=== PATIENT | male | born 1995 | race Caucasian/White ===

== ENCOUNTER 2021-12-12 06:37 | Outpatient (CLI) | payer OTHER, SELFPAY ==
[2021-12-12 07:19] LABS: Basophils Percent Auto 0.8 % (0.2-1.2); Eosinophils Absolute Auto 0.2 K/mm3 (0-0.3); Eosinophils Percent Auto 3.7 % (0-4.4); Hematocrit 48.7 % (42.0-52.0); Immature Granulocyte Absolute 0.01 K/mm3 (0.00-0.031); Immature Granulocyte Percent A 0.2 % (0-0.5); Lymphocytes Absolute Auto 1.84 K/mm3 (0.9-3.2); Lymphocytes Percent Auto 35.7 % (18.3-44.2); Mean Corpuscular HGB Conc 34.9 g/dl (32-36); Mean Corpuscular Hemoglobin 28.6 pg (26-34); Mean Platelet Volume 9.9 fl (7.4-10.4); Monocytes Absolute Auto 0.5 K/mm3 (0.1-0.6); Monocytes Percent Auto 9.9 % (2.6-8.5); Neutrophils Absolute Auto 2.6 K/mm3 (1.3-6.7); Neutrophils Percent Auto 49.7 % (45.5-73.1); Platelet Count Result 265 k/mm3 (150-375); Red Blood Count 5.94 M/mm3 (4.6-6.20); White Blood Count 5.2 K/mm3 (4.5-10.0)
[2021-12-12 07:31] LABS: Alanine Aminotransferase 41 U/L (6-50); Albumin Level 4.6 g/dL (3.5-5.1); Alkaline Phosphatase 75 U/L (38-126); Anion Gap 6 mmol/L (8-16); Aspartate Amino Transferase 24 U/L (17-59); Bilirubin,Total 0.9 mg/dL (0.2-1.3); Blood Urea Nitrogen 17 mg/dL (9-20); Calcium 8.8 mg/dL (8.4-10.2); Carbon Dioxide 27 mmol/L (22-30); Chloride 104 mmol/L (98-107); Cholesterol 226 mg/dL (0-200); Estimated Glomerular Filt Rate > 60; Glucose 219 mg/dL (65-110); HDL Direct 43 mg/dL; Potassium 4.1 mmol/L (3.4-5.0); Sodium 137 mmol/L (137-145); Triglycerides 153 mg/dL (<150)
[2021-12-12 07:41] LABS: LDL Cholesterol Direct 133 mg/dL
[2021-12-12 08:15] LABS: Hemoglobin A1C 9.3 % (<5.7)
== END 2021-12-12 06:38 | disposition home or self-care (01) ==
PROVIDERS: PCP Internal Medicine; Visit Provider Nurse Practitioner
DX: R73.9 Hyperglycemia, unspecified (principal)
CPT/HCPCS: 36415; 80053; 80061; 83036; 85025

== ENCOUNTER 2022-03-08 08:49 | Outpatient (CLI) | payer OTHER, SELFPAY ==
[2022-03-08 21:03] LABS: Hemoglobin A1C 9.9 % (<5.7)
== END 2022-03-08 08:50 | disposition home or self-care (01) ==
LOC: ANHGOSHLAB 08:50
PROVIDERS: PCP Internal Medicine; Visit Provider Nurse Practitioner
DX: E11.9 Type 2 diabetes mellitus without complications (principal)
CPT/HCPCS: 36415; 83036

== ENCOUNTER 2022-06-12 08:01 | Outpatient (CLI) | payer OTHER, SELFPAY ==
[2022-06-12 20:34] LABS: Creatinine Urine 266.7 mg/dL
[2022-06-12 20:39] LABS: MALB Creatinine Ratio 48.2 mg/g (0-30); Microalbumin Urine Random 128.6 mg/L (0-16.7)
[2022-06-12 20:46] LABS: Hemoglobin A1C 7.6 % (<5.7)
[2022-06-12 21:00] LABS: Anion Gap 9 mmol/L (8-16); Blood Urea Nitrogen 15 mg/dL (9-20); Calcium 8.8 mg/dL (8.4-10.2); Carbon Dioxide 28 mmol/L (22-30); Chloride 102 mmol/L (98-107); Cholesterol 193 mg/dL (0-200); Estimated Glomerular Filt Rate > 60; Glucose 142 mg/dL (65-110); HDL Direct 47 mg/dL; Potassium 4.5 mmol/L (3.4-5.0); Sodium 139 mmol/L (137-145); Triglycerides 120 mg/dL (<150)
[2022-06-12 21:19] LABS: LDL Cholesterol Direct 104 mg/dL
== END 2022-06-12 08:02 | disposition home or self-care (01) ==
LOC: ANHGOSHLAB 08:03
PROVIDERS: PCP Internal Medicine; Visit Provider Nurse Practitioner
DX: E11.9 Type 2 diabetes mellitus without complications (principal)
CPT/HCPCS: 36415; 80048; 80061; 82043; 83036

== ENCOUNTER 2022-09-26 14:02 | Outpatient (CLI) | payer OTHER, SELFPAY ==
[2022-09-26 19:37] LABS: Creatinine Urine 73.4 mg/dL
[2022-09-26 19:41] LABS: MALB Creatinine Ratio 96.7 mg/g (0-30)
[2022-09-26 19:45] LABS: Hemoglobin A1C 7.9 % (<5.7)
[2022-09-26 20:26] LABS: Anion Gap 8 mmol/L (8-16); Blood Urea Nitrogen 17 mg/dL (9-20); Calcium 9.4 mg/dL (8.4-10.2); Carbon Dioxide 29 mmol/L (22-30); Chloride 100 mmol/L (98-107); Estimated Glomerular Filt Rate > 60; Glucose 189 mg/dL (65-110); Potassium 3.9 mmol/L (3.4-5.0); Sodium 137 mmol/L (137-145)
== END 2022-09-26 14:03 | disposition home or self-care (01) ==
LOC: ANHGOSHLAB 14:05
PROVIDERS: PCP Internal Medicine; Visit Provider Nurse Practitioner
DX: E11.9 Type 2 diabetes mellitus without complications (principal)
CPT/HCPCS: 36415; 80048; 82043; 83036

== ENCOUNTER 2023-01-03 08:15 | Outpatient (CLI) | payer OTHER, SELFPAY ==
[2023-01-03 13:07] LABS: Basophils Percent Auto 0.8 % (0.2-1.2); Eosinophils Absolute Auto 0.2 K/mm3 (0-0.3); Hemoglobin 17.2 g/dL (14.0-18.0); Immature Granulocyte Absolute 0.01 K/mm3 (0.00-0.031); Immature Granulocyte Percent A 0.2 % (0-0.5); Lymphocytes Absolute Auto 1.89 K/mm3 (0.9-3.2); Lymphocytes Percent Auto 37.2 % (18.3-44.2); Mean Corpuscular HGB Conc 33.1 g/dl (32-36); Mean Corpuscular Hemoglobin 28.7 pg (26-34); Mean Corpuscular Volume 86.7 fl (80-100); Monocytes Absolute Auto 0.5 K/mm3 (0.1-0.6); Monocytes Percent Auto 8.9 % (2.6-8.5); Neutrophils Absolute Auto 2.5 K/mm3 (1.3-6.7); Neutrophils Percent Auto 49.9 % (45.5-73.1); Platelet Count Result 261 k/mm3 (150-375); Red Cell Distribution Width 12.8 % (11.5-14.5); White Blood Count 5.1 K/mm3 (4.5-10.0)
[2023-01-03 13:16] LABS: Alanine Aminotransferase 59 U/L (6-50); Albumin Level 4.5 g/dL (3.5-5.1); Alkaline Phosphatase 63 U/L (38-126); Anion Gap 8 mmol/L (8-16); Aspartate Amino Transferase 41 U/L (17-59); Bilirubin,Total 0.8 mg/dL (0.2-1.3); Blood Urea Nitrogen 18 mg/dL (9-20); Carbon Dioxide 27 mmol/L (22-30); Chloride 101 mmol/L (98-107); Cholesterol 191 mg/dL (0-200); Estimated Glomerular Filt Rate > 60; Glucose 141 mg/dL (65-110); HDL Direct 49 mg/dL; Potassium 3.9 mmol/L (3.4-5.0); Sodium 136 mmol/L (137-145); Triglycerides 105 mg/dL (<150)
[2023-01-03 13:28] LABS: LDL Cholesterol Direct 118 mg/dL
== END 2023-01-03 08:16 | disposition home or self-care (01) ==
LOC: ANHGOSHLAB 08:19
PROVIDERS: PCP Internal Medicine; Visit Provider Nurse Practitioner
DX: E11.9 Type 2 diabetes mellitus without complications (principal); E78.5 Hyperlipidemia, unspecified
CPT/HCPCS: 36415; 80053; 80061; 83036; 85025

== ENCOUNTER 2023-04-03 08:38 | Outpatient (CLI) | payer OTHER, SELFPAY ==
[2023-04-03 19:33] LABS: Creatinine Urine 28.9 mg/dL
[2023-04-03 19:36] LABS: Alanine Aminotransferase 35 U/L (6-50); Albumin Level 4.6 g/dL (3.5-5.1); Alkaline Phosphatase 60 U/L (38-126); Anion Gap 8 mmol/L (8-16); Aspartate Amino Transferase 35 U/L (17-59); Blood Urea Nitrogen 14 mg/dL (9-20); Calcium 9.4 mg/dL (8.4-10.2); Carbon Dioxide 28 mmol/L (22-30); Chloride 98 mmol/L (98-107); Cholesterol 192 mg/dL (0-200); Estimated Glomerular Filt Rate > 60; Glucose 179 mg/dL (65-110); HDL Direct 46 mg/dL; Potassium 4.1 mmol/L (3.4-5.0); Sodium 134 mmol/L (137-145); Triglycerides 140 mg/dL (<150)
[2023-04-03 19:41] LABS: MALB Creatinine Ratio 47.1 mg/g (0-30); Microalbumin Urine Random 13.6 mg/L (0-16.7)
[2023-04-03 19:47] LABS: LDL Cholesterol Direct 110 mg/dL
[2023-04-03 20:37] LABS: Hemoglobin A1C 7.2 % (<5.7)
== END 2023-04-03 08:39 | disposition home or self-care (01) ==
LOC: ANHGOSHLAB 08:39
PROVIDERS: PCP Internal Medicine; Visit Provider Nurse Practitioner
DX: E11.9 Type 2 diabetes mellitus without complications (principal)
CPT/HCPCS: 36415; 80053; 80061; 82043; 83036

== ENCOUNTER 2023-07-16 07:59 | Outpatient (CLI) | payer OTHER, SELFPAY ==
[2023-07-16 11:49] LABS: Anion Gap 9 mmol/L (8-16); Blood Urea Nitrogen 16 mg/dL (9-20); Calcium 9.3 mg/dL (8.4-10.2); Carbon Dioxide 26 mmol/L (22-30); Chloride 103 mmol/L (98-107); Estimated Glomerular Filt Rate > 60; Glucose 182 mg/dL (65-110); Potassium 3.8 mmol/L (3.4-5.0); Sodium 138 mmol/L (137-145)
[2023-07-16 12:38] LABS: Hemoglobin A1C 8.6 % (<5.7)
== END 2023-07-16 08:00 | disposition home or self-care (01) ==
LOC: ANHGOSHLAB 08:00
PROVIDERS: PCP Internal Medicine; Visit Provider Clinical Nurse Specialist
DX: E11.9 Type 2 diabetes mellitus without complications (principal)
CPT/HCPCS: 36415; 80048; 83036

== ENCOUNTER 2023-09-16 07:09 | Outpatient (CLI) | payer OTHER, SELFPAY ==
[2023-09-16 07:30] LABS: Basophils Percent Auto 0.6 % (0.2-1.2); Eosinophils Absolute Auto 0.2 K/mm3 (0-0.3); Eosinophils Percent Auto 4.3 % (0-4.4); Hematocrit 51.6 % (42.0-52.0); Hemoglobin 17.4 g/dL (14.0-18.0); Immature Granulocyte Absolute 0.01 K/mm3 (0.00-0.031); Immature Granulocyte Percent A 0.2 % (0-0.5); Lymphocytes Absolute Auto 1.86 K/mm3 (0.9-3.2); Lymphocytes Percent Auto 37.8 % (18.3-44.2); Mean Corpuscular HGB Conc 33.7 g/dl (32-36); Mean Corpuscular Hemoglobin 28.6 pg (26-34); Mean Corpuscular Volume 84.9 fl (80-100); Mean Platelet Volume 9.8 fl (7.4-10.4); Monocytes Absolute Auto 0.5 K/mm3 (0.1-0.6); Monocytes Percent Auto 9.3 % (2.6-8.5); Neutrophils Absolute Auto 2.4 K/mm3 (1.3-6.7); Neutrophils Percent Auto 47.8 % (45.5-73.1); Platelet Count Result 257 k/mm3 (150-375); Red Blood Count 6.08 M/mm3 (4.6-6.20); Red Cell Distribution Width 12.9 % (11.5-14.5); White Blood Count 4.9 K/mm3 (4.5-10.0)
[2023-09-16 07:53] LABS: Alanine Aminotransferase 41 U/L (6-50); Albumin Level 4.8 g/dL (3.5-5.1); Alkaline Phosphatase 69 U/L (38-126); Anion Gap 7 mmol/L (4-12); Aspartate Amino Transferase 25 U/L (17-59); Blood Urea Nitrogen 22 mg/dL (9-20); Calcium 9.3 mg/dL (8.4-10.2); Carbon Dioxide 28 mmol/L (22-30); Chloride 102 mmol/L (98-107); Cholesterol 182 mg/dL (0-200); Estimated Glomerular Filt Rate > 60; Glucose 187 mg/dL (65-110); HDL Direct 43 mg/dL; Potassium 3.8 mmol/L (3.4-5.0); Sodium 137 mmol/L (137-145); Triglycerides 169 mg/dL (<150)
[2023-09-16 08:04] LABS: Hemoglobin A1C 7.8 % (<5.7)
[2023-09-16 08:06] LABS: LDL Cholesterol Direct 113 mg/dL
[2023-09-16 09:11] LABS: Creatinine Urine 336.5 mg/dL
[2023-09-16 09:15] LABS: MALB Creatinine Ratio 29.1 mg/g (0-30); Microalbumin Urine Random 97.9 mg/L (0-16.7)
== END 2023-09-16 07:10 | disposition home or self-care (01) ==
LOC: ANHLAB 07:11
PROVIDERS: PCP Internal Medicine; Visit Provider Nurse Practitioner
DX: E78.5 Hyperlipidemia, unspecified (principal); E11.9 Type 2 diabetes mellitus without complications
CPT/HCPCS: 36415; 80053; 80061; 82043; 83036; 85025

== ENCOUNTER 2024-01-22 07:27 | Outpatient (CLI) | payer OTHER, SELFPAY ==
[2024-01-22 09:07] LABS: Hemoglobin A1C 7.7 % (<5.7)
== END 2024-01-22 07:28 | disposition home or self-care (01) ==
LOC: ANHLAB 07:29
PROVIDERS: PCP Internal Medicine; Visit Provider Nurse Practitioner
DX: E11.9 Type 2 diabetes mellitus without complications (principal)
CPT/HCPCS: 36415; 83036

== ENCOUNTER 2024-02-06 09:25 | Outpatient (CLI) | payer OTHER, SELFPAY ==
[2024-02-08 05:18] LABS: C-Peptide 1.65 ng/mL (0.80-3.85)
[2024-02-14 22:18] LABS: Islet Cell Antibody Screen NEGATIVE (NEGATIVE)
== END 2024-02-06 09:26 | disposition home or self-care (01) ==
LOC: ANHLAB 09:27
PROVIDERS: PCP Internal Medicine; Visit Provider Nurse Practitioner
DX: E78.5 Hyperlipidemia, unspecified (principal); E11.9 Type 2 diabetes mellitus without complications
CPT/HCPCS: 36415; 84681; 86341

== ENCOUNTER 2024-04-21 07:25 | Outpatient (CLI) | payer OTHER, SELFPAY ==
[2024-04-21 07:56] LABS: Basophils Absolute Auto 0.1 K/mm3 (0.0-0.1); Eosinophils Absolute Auto 0.2 K/mm3 (0-0.3); Eosinophils Percent Auto 4.5 % (0-4.4); Hematocrit 48.5 % (42.0-52.0); Hemoglobin 16.8 g/dL (14.0-18.0); Immature Granulocyte Absolute 0.01 K/mm3 (0.00-0.031); Immature Granulocyte Percent A 0.2 % (0-0.5); Lymphocytes Absolute Auto 1.83 K/mm3 (0.9-3.2); Lymphocytes Percent Auto 37.8 % (18.3-44.2); Mean Corpuscular HGB Conc 34.6 g/dl (32-36); Mean Corpuscular Hemoglobin 28.9 pg (26-34); Mean Corpuscular Volume 83.5 fl (80-100); Mean Platelet Volume 9.3 fl (7.4-10.4); Monocytes Absolute Auto 0.4 K/mm3 (0.1-0.6); Monocytes Percent Auto 7.9 % (2.6-8.5); Neutrophils Absolute Auto 2.4 K/mm3 (1.3-6.7); Neutrophils Percent Auto 48.6 % (45.5-73.1); Platelet Count Result 284 k/mm3 (150-375); Red Blood Count 5.81 M/mm3 (4.6-6.20); Red Cell Distribution Width 12.7 % (11.5-14.5); White Blood Count 4.8 K/mm3 (4.5-10.0)
[2024-04-21 08:09] LABS: Alanine Aminotransferase 49 U/L (6-50); Albumin Level 4.3 g/dL (3.5-5.1); Alkaline Phosphatase 77 U/L (38-126); Anion Gap 9 mmol/L (4-12); Aspartate Amino Transferase 30 U/L (17-59); Bilirubin,Total 0.7 mg/dL (0.2-1.3); Blood Urea Nitrogen 14 mg/dL (9-20); Calcium 9.1 mg/dL (8.4-10.2); Carbon Dioxide 27 mmol/L (22-30); Chloride 103 mmol/L (98-107); Cholesterol 178 mg/dL (0-200); Estimated Glomerular Filt Rate > 60; Glucose 172 mg/dL (65-110); HDL Direct 41 mg/dL; Potassium 3.8 mmol/L (3.4-5.0); Sodium 139 mmol/L (137-145); Triglycerides 84 mg/dL (<150)
[2024-04-21 08:20] LABS: LDL Cholesterol Direct 102 mg/dL
[2024-04-21 09:04] LABS: Hemoglobin A1C 7.1 % (<5.7)
[2024-04-21 10:09] LABS: Microalbumin Urine Random 53.7 mg/L (0-16.7)
[2024-04-21 11:06] LABS: MALB Creatinine Ratio 14.4 mg/g (0-30)
== END 2024-04-21 07:26 | disposition home or self-care (01) ==
PROVIDERS: PCP Internal Medicine; Visit Provider Nurse Practitioner
DX: E78.5 Hyperlipidemia, unspecified (principal); E11.9 Type 2 diabetes mellitus without complications
CPT/HCPCS: 36415; 80053; 80061; 82043; 82172; 83036; 85025

== ENCOUNTER 2024-07-07 07:41 | Outpatient (CLI) | payer OTHER, SELFPAY ==
[2024-07-07 08:21] LABS: Anion Gap 9 mmol/L (4-12); Blood Urea Nitrogen 19 mg/dL (9-20); Calcium 9.4 mg/dL (8.4-10.2); Carbon Dioxide 28 mmol/L (22-30); Chloride 100 mmol/L (98-107); Estimated Glomerular Filt Rate > 60; Glucose 183 mg/dL (65-110); Potassium 4.1 mmol/L (3.4-5.0); Sodium 137 mmol/L (137-145)
[2024-07-07 10:52] LABS: Creatinine Urine 303.9 mg/dL
[2024-07-07 10:56] LABS: Microalbumin Urine Random 51.6 mg/L (0-16.7)
[2024-07-07 11:07] LABS: Hemoglobin A1C 7.9 % (<5.7)
== END 2024-07-07 07:42 | disposition home or self-care (01) ==
LOC: ANHLAB 07:42
PROVIDERS: PCP Internal Medicine; Visit Provider Nurse Practitioner
DX: E11.9 Type 2 diabetes mellitus without complications (principal)
CPT/HCPCS: 36415; 80048; 82043; 83036

== ENCOUNTER 2025-01-05 07:25 | Outpatient (CLI) | payer OTHER, SELFPAY ==
--- OUTSIDE RECORDS SUMMARY | 2025-01-05 07:30 | XMS_ITS | Encounter Summary ---
Author Organization [facility] Address [address] [place] [address] Phone Care Team Providers Care Clockmaker Apprentice Name Role Phone Emma Sylvester NP Primary Care Provider [phone] Encounter Details Date Type Department Care Team (Late st Contact Info) Description 12/16/2024 Telephone [facility] LAS Surgery [facility]) [address], [address] [place] [address] Jer Enamorado, OD [address] [facility], [address] [place] [address] Social History Tobacco Use Types Packs/Day Years Used Date Smoking Tobacco: Never Passive Smoke Exposure: Never AUDIT-C Answer Date Recorded Q1: How often do you have a drink containing alc ohol? 2-3 times a week 09/14/2024 Average Number of Drinks Not on file 025 Frequency of Binge Drinking Not on file 09/01 Sex and Gender Information Value Date Recorded Sex Assigned at Not on file Legal Sex Male 2:15 PM CDT Gender Identity Not on file Sexual Orientation Not on file documented as of this encounter Miscellaneous Notes * Telephone Encounter - Issa Ren - 12/16/2024 8:58 AM CDT Called to [facility] 1 year medical eye exam follow up per Dr. Enamorado no answer LM documented in this encounter Plan of Treatment Not on file documented as of this encounter Visit Diagnoses Not on filedocumented in this encounter Care Teams Clockmaker Apprentice Relationship Specialty Start Date End Date Emma Sylvester, KALI [address] [facility] [address] [address] PCP - General Internal Medicine 02/12/24 documented as of this encounter
--- OUTSIDE RECORDS SUMMARY | 2025-01-05 07:30 | XMS_ITS | Clinical Summary ---
Author Organization [facility] Address [address] [place] [address] Care Team Providers Care Scale Expert Name Role Phone Emma Sylvester NP Primary Care Provider [phone] Allergies No known active allergies Medications metFORMIN (GLUCOPHAGE) 1,000 mg tablet Take 1 tablet (1,000 mg total) by mouth 2 (two) times a day with meals Active semaglutide (Ozempic) 2 mg/dose (8 mg/3 mL) pen injector injection Inject 2 mg under the skin every 7 days Active empagliflozin (Jardiance) 10 mg tabletIndication s:Type 2 diabetes mellitus without complication, unspecified whether [facility] insulin use (HCC) Take 1 tablet (10 mg total) by mouth daily 90 tablet 3 09/14/2024 Active blood-glucose sensor (FreeStyle Ledy 3 Plus Sensor) device Change sensor every 14 days 2 each 2 09/29/2024 Active semaglutide (WEGOVY) 2.4 mg/0.75 mL auto-injectorInd ications:Type 2 diabetes mellitus without complication, unspecified whether intermission coordinator insulin use (HCC),Class 2 severe obesity due to excess calories with serious comorbidity and body mass index (BMI) of 39.0 to 39.9 in adult (HCC) Inject 2.4 mg under the skin every 7 days 9 mL 3 10/16/2024 Active Active Problems Problem Noted Date Diagnosed Date Type 2 diabetes mellitus without complication Assessment & Plan (12/15/2024 4:55 PM CDT): Type II Diabetes without retinopathy both eyes (OU). No evidence of background diabetic retinopathy or clinically significant macular edema. Encourage tight bs control per PCP. Recommend follow up in 1 year Chalazion left upper eyelid 12/15/2024 Assessment & Plan (12/15/2024 5:00 PM CDT): Chalazion MICHAEL No signs of active infection Warm compresses BID Call if no improvement Encounters Date Type Department Care Team Description 12/16/2024 Telephone [facility] LASIK Surgery [facility]) [address], [address] [place] [address] Jer Enamorado, KODAK 12/15/2024 4:00 PM CDT Office Visit [facility] LASIK Surgery [facility]) [address], [address] [place] [address] Jer Enamorado, OD Chalazion left upper eyelid (Primary Dx); Type 2 diabetes mellitus without complication, unspecified whether [facility] insulin use (HCC) from Last 3 Months Family History Medical History Relation Name Comments No Known Problems Father No Known Problems Mother Hyperlipidemia Paternal Grandmother may b e cholesterol, HTN or heart disease, patient not sure Autoimmune disease Neg Hx Diabetes Neg Hx Relation Name Status Comments Father Mother Paternal Grandmother Social History Tobacco Use Types Packs/Day Years [...] on file Sexual Orientation Not on file Obstetrics History Last Filed Vital Signs Vital Sign Reading Time Taken Comments Blood Pressure 104/71 09/14/2024 10:18 AM CDT Pulse 87 09/14/2024 10:18 AM CDT Temperature 37.1 C (98.7 F) 09/14/2024 10:18 AM CDT Respiratory Rate - - Oxygen Saturation - - Inhaled Oxygen Concentration - - Weight 87.9 kg (193 lb 12.8 oz) 025 10:18 AM CDT Height 175.3 cm (5' 9) 09/14/2024 10:1 8 AM CDT Body Mass Index 28.62 09/14/2024 10:18 AM CDT Plan of Treatment Health Maintenance Due Date Last Done Comments Depression Screening 1997 Foot Exam 1997 Hepatitis C Screening 1997 TSH Level 1997 eGFR 1997 Lipid Panel 09/20/2007 DTaP/Tdap/Td Vaccine (1 - Tdap) 2008 Varicella Vaccines (1 of 2 - 13+ 2-dose series) 2010 Hepatitis B Screening 09/20/2015 Regular Well Visit/Exam 18-64 09/20/2015 Pneumococcal vaccine <65 (1 of 2 - PCV) 2016 Covid-19 Vaccine (3 - season) 02/02/202409/2021, 05/06/2021 HPV Vaccines (1 - 3-dose SCDM series) 2024 Influenza Vaccine (#1) 2025 05/06/2022 Hemoglobin A1C 03/16/2025 09/14/2024 Albumin Creatinine Ratio, Urine 09/14/2025 Dilated Eye Exam 12/15/2025 12/15/2024 Procedures Procedure Name Priority Date/Time Associated Diagnosis Comments ALBUMIN CREATININE RATIO, URINE Routine 09/14/2024 12:41 PM CDT Type 2 diabetes mellitus without complication, unspecified whether [facility] insulin use (HCC) POCT HEMOGLOBIN A1C Routine 09/14/2024 1 0:28 AM CDT Type 2 diabetes mellitus without complication, unspecified whether [facility] insulin use (HCC) from Last 3 Months or Most Recently Relevant to Health Maintenance Results * Albumin Creatinine Ratio, Urine (09/14/2024 12:41 PM CDT) Albumin Ur 23.0 mg/L Comment: Interpretive Data No reference range established. Current interpretive data was last revised 2018. Creatinine Ur 191.7 mg/dL [facility] Comment: Interpretive Data No reference range established. Current interpretive data was last revised 2018. Albumin Creatinine Ratio, Ur 12 1 - 29 mg/g [facility] Urine 09/14/2024 12:4 1 PM CDT 09/14/2024 1:38 PM CDT Sarah Toussaint MD PhD LAB URINE ORDERABLES Final Result [facility] Department [place] [address] * POCT hemoglobin A1c (09/14/2024 10:28 AM CDT) Hemoglobin A1C, POC 8.3 4.0 - 5.6 % Blood 09/14/2024 10:2 8 AM CDT Sarah Toussaint MD PhD POINT OF CARE TEST ORDERABLES Final Result from Last 3 Months or Most Recently Relevant to Health Maintenance Insurance [facility] CHO[facility] PLUS [facility] PL[facility] Care Teams Scale Expert Relationship Specialty Start Date End Date Emma Sylvester NP [address] [place] [address] [address] PCP - General Internal Medicine 02/12/24
--- OUTSIDE RECORDS SUMMARY | 2025-01-05 07:30 | XMS_ITS | Referral Summary ---
Author Organization [facility] Address [address] [place] [address] Care Team Providers Care Casting Trucker Name Role Phone Emma Sylvester NP Primary Care Provider [phone] Encounters Date Type Department Care Team Description 12/16/2024 Telephone [facility]) [address] [facility], [address] [place] [address] Jer Enamorado OD 12/15/2024 4:00 PM CDT Office Visit [facility]) [address], [address] [place] [address] Jer Enamorado, KODAK Chalazion left upper eyelid (Primary Dx); Type 2 diabetes mellitus without complication, unspecified whether exterminator termite insulin use (HCC) from Last 3 Months Allergies No known active allergies Medications metFORMIN (GLUCOPHAGE) 1,000 mg tablet Take 1 tablet (1,000 mg total) by mouth 2 (two) times a day with meals Active semaglutide (Ozempic) 2 mg/dose (8 mg/3 mL) pen injector injection Inject 2 mg under the skin every 7 days Active empagliflozin (Jardiance) 10 mg tabletIndication s:Type 2 diabetes mellitus without complication, unspecified whether exterminator termite insulin use (HCC) Take 1 tablet (10 mg total) by mouth daily 90 tablet 3 09/14/2024 Active blood-glucose sensor (FreeStyle Ledy 3 Plus Sensor) device Change sensor every 14 days 2 each 2 09/29/2024 Active semaglutide (WEGOVY) 2.4 mg/0.75 mL auto-injectorInd ications:Type 2 diabetes mellitus without complication, unspecified whether exterminator termite insulin use (HCC),Class 2 severe obesity due [...] Warm compresses BID Call if no improvement Social History Tobacco Use Types Packs/Day Years [...] on file Sexual Orientation Not on file Last Filed Vital Signs Vital Sign Reading [...] 09/14/2024 10:18 AM CDT Plan of Treatment Not on file Procedures Procedure Name Priority Date/Time Associated Diagnosis Comments ALBUMIN CREATININE RATIO, URINE Routine 09/14/2024 12:41 PM CDT Type 2 diabetes mellitus without complication, unspecified whether exterminator termite insulin use (HCC) POCT HEMOGLOBIN A1C Routine 09/14/2024 1 0:28 AM CDT Type 2 diabetes mellitus without complication, unspecified whether exterminator termite insulin use (HCC) from Last 3 Months or Most Recently Relevant to Health Maintenance Results * Albumin Creatinine Ratio, Urine (09/14/2024 12:41 PM CDT) Albumin Ur 23.0 mg/L Comment: Interpretive Data No reference range established. Current interpretive data was last revised 2018. Creatinine Ur 191.7 mg/dL [facility] Comment: Interpretive Data No reference range established. Current interpretive data was last revised 2018. Albumin Creatinine Ratio, Ur 12 1 - 29 mg/g [facility] Urine 09/14/2024 12:4 1 PM CDT 09/14/2024 1:38 PM CDT us Sarah Toussaint MD PhD LAB URINE ORDERABLES Final Result [facility] Department [place] [address] * POCT hemoglobin A1c (09/14/2024 10:28 AM CDT) Hemoglobin A1C, POC 8.3 4.0 - 5.6 % Blood 09/14/2024 10:2 8 AM CDT Sarah Toussaint MD PhD POINT OF CARE TEST ORDERABLES Final Result from Last 3 Months or Most Recently Relevant to Health Maintenance Insurance [facility] CHOICE PLUS Member Subscriber Plan / Payer (Ef fective 2023-Present) Name:Travis Tejeda Relation to Subscriber:Self Name:Travis Tejeda Payer ID:[id number] (NAIC) Type:[facility] HMO/PPO Address: [place] [phone] [facility] CHOICE PLUS Care Teams Casting Trucker Relationship Specialty Start Date End Date Emma Sylvester NP [facility] [facility] [address] [place] [address] [place] [address] PCP - General Internal Medicine 02/12/24
[2025-01-05 08:34] LABS: Anion Gap 9 mmol/L (4-12); Blood Urea Nitrogen 16 mg/dL (9-20); Calcium 9.2 mg/dL (8.4-10.2); Carbon Dioxide 27 mmol/L (22-30); Chloride 103 mmol/L (98-107); Cholesterol 194 mg/dL (0-200); Estimated Glomerular Filt Rate > 60; Glucose 137 mg/dL (65-110); HDL Direct 51 mg/dL; Potassium 4.0 mmol/L (3.4-5.0); Sodium 139 mmol/L (137-145); Triglycerides 82 mg/dL (<150)
[2025-01-05 08:46] LABS: Hemoglobin A1C 5.9 % (<5.7)
== END 2025-01-05 07:26 | disposition home or self-care (01) ==
LOC: ANHLAB 07:27
PROVIDERS: PCP Nurse Practitioner; Visit Provider Nurse Practitioner
DX: E11.9 Type 2 diabetes mellitus without complications (principal)
CPT/HCPCS: 36415; 80048; 80061; 83036